=== PATIENT | female | born 2000 | race Caucasian/White ===

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

== ENCOUNTER 2024-07-26 22:53 | Emergency (ER) | payer OTHER, SELFPAY ==
[2024-07-26 22:54] VITALS: BP 114/78; PULSE 98; RESP 18; TEMP 36.4; O2SAT 100; BMI 25.2
--- NOTE | 2024-07-26 23:19 | RAD_ITS ---
INDICATION: pain EXAMINATION/TECHNIQUE: X-RAY - RIGHT XR Hand Min 3 Views 3 VIEWS COMPARISON: No relevant prior comparison study available FINDINGS: SOFT TISSUES: There is mild soft tissue swelling involving the 3rd digit at the level of the PIP. No radiopaque foreign body. BONES/JOINTS: No acute fracture or subluxation, particularly with regard to the 3rd digit.. Normal alignment. Preservation of the joint space.. No sclerotic or destructive changes observed. RAD/Hand Min 3 Views IMPRESSION: 1. No evidence fracture, malalignment or focal bony or joint space abnormality. Normal appearance of bony elements of the 3rd digit. 2. Mild soft tissue swelling involving the 3rd digit at the level of PIP. Electronically Signed: Don Gomez MD at 0:02 EST ,
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
== END 2024-07-27 00:34 | disposition home or self-care (01) ==
PROVIDERS: Emergency Provider Emergency Medicine; Visit Provider Emergency Medicine
DX: S60.031A Contusion of right middle finger without damage to nail, initial encounter (principal); S67.192A Crushing injury of right middle finger, initial encounter; W23.2XXA Caught, crushed, jammed or pinched between a moving and stationary object, initial encounter
CPT/HCPCS: 73130; 99282